=== PATIENT | male | born 1965 | race Asian ===

== ENCOUNTER 2016-03-22 06:59 | Outpatient (CLI) | payer OTHER | END 2016-03-22 07:00 | disposition home or self-care (01) | DX: E11.9 Type 2 diabetes mellitus without complications (principal); E78.5 Hyperlipidemia, unspecified; I10 Essential (primary) hypertension ==

== ENCOUNTER 2016-09-23 17:00 | Outpatient (CLI) | payer OTHER | END 2016-09-23 17:01 | disposition critical access hospital (66) | LOC: EMS 17:00 | PROVIDERS: ATTEND Surgery | DX: R42 Dizziness and giddiness (principal) | CPT/HCPCS: A0425; A0429 ==

== ENCOUNTER 2016-09-23 17:23 | Emergency (ER) | payer OTHER ==
--- NOTE | 2016-09-23 18:59 | ED Physician Documentation ---
PD HPI ABD PAIN - Stated complaint Stated Complaint: ABD PX - Chief complaint Chief Complaint: General - History obtained from History obtained from: Patient - History of Present Illness Timing - onset: How many hours ago Timing - duration: Hours (2) Timing - details: Abrupt onset, Still present Quality: Cramping, Aching, Pain Location: Epigastric Radiation: Chest Associated symptoms: Nausea, Other (diaphoretic, general weakness.) Similar symptoms before: Has not had sx before Recently seen: Not recently seen Review of Systems Constitutional: denies: Fever, Chills, Myalgias Nose: denies: Rhinorrhea / runny nose, Congestion Throat: denies: Sore throat Cardiac: reports: Chest pain / pressure. denies: Pedal edema, Calf pain Respiratory: reports: Dyspnea. denies: Cough, Wheezing GI: reports: Nausea. denies: Abdominal Pain, Vomiting, Diarrhea Skin: denies: Rash, Lesions Musculoskeletal: denies: Neck pain, Back pain Neurologic: reports: Generalized weakness. denies: Focal weakness, Numbness, Near syncope PD PAST MEDICAL HISTORY - Past Medical History Past Medical History: Yes Cardiovascular: None Respiratory: None Neuro: None Endocrine/Autoimmune: Type 2 diabetes GI: None : None HEENT: None Psych: None Musculoskeletal: None - Past Surgical History Past Surgical History: No - Present Medications Home Medications: Ambulatory Orders Medication Instructions Recorded Confirmed metFORMIN [Glucophage] 500 mg PO BIDWM 02/14/15 09/23/16 Ibuprofen [Motrin] 800 mg PO Q8H PRN #30 tablet 12/01/15 09/23/16 HYDROcod/ACETAM 5/325 [[place] 5/325] 1 tab PO Q6H PRN #15 tablet 09/23/16 Ondansetron Odt [Zofran] 4 mg TL Q6H PRN #15 tablet 09/23/16 - Allergies Allergies/Adverse Reactions: Allergies Allergy/AdvReac Type Severity Reaction Status Date / Time No Known Drug Allergies Allergy Verified 02/13/15 19:31 - Social History Does the pt smoke?: No Smoking Status: Current some day smoker Does the pt drink ETOH?: No Does the pt have substance abuse?: No - Immunizations Immunizations: TDAP >10years/unknown PD ED PE NORMAL - Vitals Vital signs reviewed: Yes - General General: Alert and oriented X 3, Well developed/nourished - HEENT HEENT: PERRL (nonicteric), Pharynx benign - Neck Neck: Supple, no meningeal sign, No adenopathy - Cardiac Cardiac: RRR, No murmur - Respiratory Respiratory: Clear bilaterally - Abdomen Abdomen: Normal bowel sounds, Soft, Non distended, No organomegaly, Other ( tender epigastric without percussion nor rebound. ) - Back Back: No CVA TTP - Derm Derm: Normal color, Warm and dry - Extremities Extremities: No deformity, No tenderness to palpate - Neuro Neuro: Alert and oriented X 3, No motor deficit, Normal speech - Psych Psych: Normal mood, Normal affect Results - Vitals Vitals: Oxygen O2 Source Room air - EKG (time done) admission Rhythm: NSR [place]: Normal Intervals: Normal SD QRS: Normal Ischemia: Normal ST segments. No: ST elevation c/w ischemia, ST depression - Labs Labs: Laboratory Tests 09/23/16 09/23/16 09/23/16 19:50 19:50 19:50 WBC 13.4 H RBC 5.16 Hgb 15.0 Hct 45.1 MCV 87.5 MCH 29.1 MCHC 33.2 RDW 12.9 Plt Count 333 MPV 7.8 Neut # 8.4 H Lymph # 4.0 H [place] # 0.7 Eos # 0.2 Baso # 0.1 Absolute Nucleated RBC 0.01 Nucleated RBCs 0.0 Sodium 134 L Potassium 4.1 Chloride 97 L Carbon Dioxide 25 Anion Gap 12.0 BUN 19 Creatinine 0.8 Estimated GFR (MDRD) 102 Glucose 186 H Calcium 10.4 H Total Bilirubin 0.6 AST 25 ALT 26 Alkaline Phosphatase 80 Troponin I < 0.04 Total Protein 8.2 Albumin 4.4 Globulin 3.8 Albumin/Globulin Ratio 1.2 Lipase 32 - Rads (name of study) abd U/S Radiology: Prelim report reviewed (sludge or stone in neck. No signs of cholecystitis. ) PD MEDICAL DECISION MAKING - ED course Complexity details: re-evaluated patient (he is improved with meds here. Labs and ECG are okay. U/S showing stone in neck without signs of inflammation. Consider biliary colic, given the abrupt severe pain and now doing better.), considered differential, d/w patient Departure - Departure Disposition: 01 Home, Self Care Clinical Impression: Upper abdominal pain, Biliary colic symptom Condition: Stable Record reviewed to determine appropriate education?: Yes Instructions: ED Epigastric Pain UKO, ED Gallstone W Biliary Colic Follow-Up: Bear Madsen MD [Provider Admit Priv/Credential] - Prescriptions: HYDROcod/ACETAM 5/325 [[place] 5/325] 1 tab PO Q6H PRN #15 tablet PRN Reason: Pain Ondansetron Odt [Zofran] 4 mg TL Q6H PRN #15 tablet PRN Reason: Nausea / Vomiting Comments: The tests here did not give a certain cause of your symptoms. However the ultrasound does show a gallstone in the neck of the gallbladder which combined with your symptoms would suggest he had a gallbladder spasm. Have a lower fat diet for the next few days. Tylenol or ibuprofen if needed for pains. He can use ondansetron if needed for nausea. Add hydrocodone if needed for worse pain. Rest for 1-2 days. Recheck if not fully improved and your symptoms over the next couple of days. Return sooner if you have increasing pain, vomiting, fevers or other symptoms. If you have recurring mild episodes like this, then consult surgery to discuss whether he would need gallbladder surgery. If no further episodes then no particular treatment needed. Forms: Activity restrictions Discharge Date/Time: 09/23/16 23:21
[2016-09-23] MEDS ORDERED: ASPIRIN CHEW 81 MG TABLET ONE (19:45)
[2016-09-23] MEDS ORDERED: MAG HYDROX/AL HYDROX/SIMETH 30 ML UDC ONE (19:45)
[2016-09-23] MEDS ORDERED: LIDOCAINE VISCOUS 2% 15 ML UDC MM ONE (19:45)
[2016-09-23] MEDS: ASPIRIN CHEW 81 MG TABLET PO STA (19:46)
[2016-09-23] MEDS: LIDOCAINE VISCOUS 2% 15 ML UDC MM STA (19:46)
[2016-09-23] MEDS: MAG HYDROX/AL HYDROX/SIMETH 30 ML UDC PO STA (19:46)
[2016-09-23 20:00] LABS: BASOPHILS # (AUTO) 0.1 10^3/uL (0.0-0.1); BASOPHILS % (AUTO) 0.7 %; EOSINOPHILS # (AUTO) 0.2 10^3/uL (0.0-0.7); EOSINOPHILS % (AUTO) 1.4 %; HCT - HEMATOCRIT 45.1 % (42.0-52.0); LYMPHOCYTES % (AUTO) 29.7 %; MEAN CORPUSCULAR HEMOGLOBIN 29.1 pg (27.0-31.0); MEAN CORPUSCULAR HGB CONC 33.2 g/dL (32.0-36.0); MEAN CORPUSCULAR VOLUME 87.5 fL (80.0-94.0); MEAN PLATELET VOLUME 7.8 fL (7.4-11.4); MONOCYTES # (AUTO) 0.7 10^3/uL (0.0-1.0); MONOCYTES % (AUTO) 5.5 %; NEUTROPHILS # (AUTO) 8.4 10^3/uL (1.5-6.6); NEUTROPHILS % (AUTO) 62.7 %; RED BLOOD COUNT 5.16 10^6/uL (4.70-6.10); RED CELL DISTRIBUTION WIDTH 12.9 % (12.0-15.0); UNCORRECTED WHITE BLOOD COUNT 13.4 x10^3/uL; WHITE BLOOD COUNT 13.4 x10^3/uL (4.8-10.8)
[2016-09-23 20:13] LABS: ALBUMIN/GLOBULIN RATIO 1.2 (1.0-2.2); BILIRUBIN,TOTAL 0.6 mg/dL (0.2-1.0); CALCIUM 10.4 mg/dL (8.5-10.3); CREATININE 0.8 mg/dL (0.6-1.2); POTASSIUM 4.1 mmol/L (3.5-5.0); TOTAL PROTEIN 8.2 g/dL (6.7-8.2)
[2016-09-23] MEDS: MECLIZINE 12.5 MG TABLET PO STA (21:17)
[2016-09-23] MEDS: SODIUM CHLORIDE 0.9% 1,000 ML IV ONE (21:17)
[2016-09-23] MEDS ORDERED: MECLIZINE 12.5 MG TABLET PO ONE (21:17)
--- NOTE | 2016-09-23 21:48 | Ultrasound Preliminary Report ---
Exam: US Abdomen Limited IMPRESSION: 1. No change. Sludge ball or gallstone in the neck of the gallbladder without other findings of acute cholecystitis. 2. Steatosis of the liver. 3. No biliary dilatation. [facility] SITE ID: [id number]
--- NOTE | 2016-09-23 21:50 | Ultrasound Report ---
EXAM: ABDOMEN ULTRASOUND LIMITED, RUQ EXAM DATE: 09/23/2016 09:30 PM. CLINICAL HISTORY: Upper abd pain onset today. COMPARISON: 02/13/2015. TECHNIQUE: Real-time scanning was performed with static images obtained. FINDINGS: Liver: The liver parenchyma is diffusely echogenic. No focal liver masses visualized. 16.3 cm. Main p ortal vein flow: Hepatopetal. Gallbladder: There is a non-shadowing echogenic density in the neck of the gallbladder measuring 9 x 7 mm. Negative ultrasound Briseno's sign. The gallbladder appears normal in size and thickness. Biliary System: CBD measures 6 mm. No intrahepatic or extrahepatic ductal dilatation. Other: Right kidney measures 12.5 x 5 x 5 cm. No hydronephrosis. IMPRESSION: 1. No change. Sludge ball or gallstone in the neck of the gallbladder without other findings of acute cholecystitis. 2. Steatosis of the liver. 3. No biliary dilatation. [facility] Referring Provider Line: [phone] SITE ID: [id number]
[2016-09-23 22:17] VITALS: BP 137/80
== END 2016-09-23 23:21 | disposition home or self-care (01) ==
LOC: EDUNIT# → ED 17:23
DX: K80.50 Calculus of bile duct without cholangitis or cholecystitis without obstruction (principal); R10.13 Epigastric pain; E11.9 Type 2 diabetes mellitus without complications; Z79.84 Long term (current) use of oral hypoglycemic drugs; F17.200 Nicotine dependence, unspecified, uncomplicated
CPT/HCPCS: 36415; 76705; 80053; 83690; 84484; 85025; 93005; 99284; A9270

== ENCOUNTER 2016-10-21 09:17 | Outpatient (CLI) | payer OTHER ==
--- NOTE | 2016-10-21 12:35 | Ultrasound Report ---
LIMITED ABDOMINAL ULTRASOUND: 10/21/2016 CLINICAL INDICATION: Possible gallstone on previous exam. COMPARISON: 09/23/2016 TECHNIQUE: Real-time scanning was performed with patient portal representative static images obtained. FINDINGS: The liver measures 17.4 cm. The liver demonstrates increased echotexture, compatible with fatty infiltration. No focal parenchymal lesion or intrahepatic biliary dilatation is seen. The co mmon bile duct measures 5 mm. The gallbladder demonstrates a small amount of sludge. No shadowing c alculus is identified. The right kidney measures 12.6 cm, and demonstrates no hydronephrosis. No fr ee fluid is present. IMPRESSION: SMALL AMOUNT OF SLUDGE WITHIN THE GALLBLADDER. NO CHOLELITHIASIS. FATTY INFILTRATION O F THE LIVER. JOB #: [id number] EXT JOB #:
== END 2016-10-21 09:18 | disposition home or self-care (01) ==
LOC: DI 09:17
PROVIDERS: ATTEND Surgery
DX: K82.8 Other specified diseases of gallbladder (principal); K76.0 Fatty (change of) liver, not elsewhere classified
CPT/HCPCS: 76705

== ENCOUNTER 2018-04-29 12:41 | Outpatient (CLI) | payer BC ==
--- NOTE | 2018-04-29 15:11 | CARDIAC PROCEDURE NOTE ---
DATE OF SERVICE: 04/29/2018 Physician: Vicky Wong MD, [facility] INDICATION: Chest pain. CARDIAC RISK FACTORS: Male gender, diabetes, hypertension, overweight, smoker who quit 1 month ago, hyperlipidemia. PROCEDURE: After signing informed consent, the patient underwent a Niraj- protocol treadmill stress test. No imaging was ordered with this test. RESTING HEART RATE: 71. PEAK HEART RATE: 145 (86% predicted maximum heart rate). RESTING BLOOD PRESSURE: 132/84. PEAK BLOOD PRESSURE: 160/70. The patient exercised for 4 minutes and 17 seconds on a Niraj protocol treadmill stress test. He achieved a peak HR of 145 (86% predicted maximum heart rate based on age), and 6.3 METS. There was normal heart rate and blood pressure response to exercise. At the end of the first stage, ST segment depressions began to develop. At 1 minute into stage 2, the patient developed his typical chest "heat" feeling which he rated a 4/10. The treadmill test was stopped at this time. The patient's chest symptom resolved after 2-1/2 minutes of recovery. RESTING ECG: Normal sinus rhythm and within normal limits. EKG AT PEAK: [address] depressions in leads II, III, aVF, and V5 and V6, and 3 mm horizontal depressions in V3 and V4. T waves also became flat in those leads at peak. In recovery, T waves became inverted. SUMMARY 1. Symptom-Limited treadmill stress test performed. The patient developed typical chest discomfort. 2. Ischemic changes by EKG criteria are present. 3. No imaging study was ordered with this treadmill stress test. RECOMMENDATIONS: 1. The patient was given the preliminary impression of an abnormal stress test. 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 He was told to only carry out light activities including no yard work, no walking up inclines, no pushing or "rushing" (which sometimes causes these symptoms, he said). 2. I called the office of Dr. Coughlin, who was gone today, and spoke to his nurse with the test result and recommendations. The patient was given an appointment to see the [facility] on the following day, this appointment was given to the patient. 3. He should be started on a daily aspirin, Nitrates and B-blockers, have light activity until he has a coronary angiogram and may need follow-up with Cardiology. Report FAXed on 04/29/18 to PCP office cc: Mihir Coughlin DO TD: 04/29/2018 14:33 MTDD
== END 2018-04-29 12:42 | disposition home or self-care (01) ==
LOC: DI 12:41
PROVIDERS: ATTEND Family Medicine
DX: R94.39 Abnormal result of other cardiovascular function study (principal); E11.9 Type 2 diabetes mellitus without complications; I10 Essential (primary) hypertension; E66.3 Overweight; Z87.891 Personal history of nicotine dependence; E78.5 Hyperlipidemia, unspecified
CPT/HCPCS: 93017

== ENCOUNTER 2021-05-09 12:22 | Emergency (ER) | payer OTHER, BC ==
--- NOTE | 2021-05-09 13:09 | ED Physician Documentation ---
History of Present Illness - Stated complaint Stated Complaint: RIGHT SHOULDER INJURY - Chief complaint Chief Complaint: Trauma Ext - Additonal information Additional information: 55-year-old male who is employed by [employer] presents the emergency department for evaluation of acute right shoulder pain. He reports that yesterday he was moving some boards and a board began to fall. He attempted to grab it and when he did so he felt a pop in the shoulder. He did not think much of it and continued to work through the day but today he has had increasing pain especially in the anterior shoulder. He is right-hand dominant. No history of previous injury. Review of Systems Constitutional: denies: Fever, Chills Throat: reports: Reviewed and negative Cardiac: reports: Reviewed and negative Respiratory: reports: Reviewed and negative GI: reports: Reviewed and negative Musculoskeletal: reports: Joint pain (right shoulder) PD PAST MEDICAL HISTORY - Past Medical History Past Medical History: Yes Cardiovascular: Hypertension, High cholesterol, Coronary artery disease Respiratory: None Neuro: None Endocrine/Autoimmune: Type 2 diabetes GI: None : None HEENT: None Psych: None Musculoskeletal: None - Past Surgical History Past Surgical History: No Cardiovascular: Cardiac catheterization, Other - Present Medications Home Medications: Ambulatory Orders Medication Instructions Recorded Confirmed metFORMIN [Glucophage] 1,000 mg PO BIDWM 02/14/15 05/09/21 Aspirin [Aspirin EC] 81 mg PO DAILY 05/09/21 05/09/21 Lisinopril [Zestril] 20 mg PO DAILY 05/09/21 05/09/21 Metoprolol Succinate 100 mg PO DAILY 05/09/21 05/09/21 Rosuvastatin Calcium [Crestor] 20 mg PO HS 05/09/21 05/09/21 - Allergies Allergies/Adverse Reactions: Allergies Allergy/AdvReac Type Severity Reaction Status Date / Time No Known Drug Allergies Allergy Verified 05/09/21 12:27 - Social History Does the pt smoke?: No Smoking Status: Never smoker Does the pt drink ETOH?: No Does the pt have substance abuse?: No - Immunizations Immunizations are current?: Yes Immunizations: TDAP >10years/unknown PD ED PE EXPANDED - General General: Alert, No acute distress - Extremities Extremities: Right shoulder (Mild tenderness with active and passive range of motion especially at the AC joint. Negative drop arm test full strength preserved with abduction and abduction against resistance. Normal strength at elbow and wrist. No paresthesias) Results - Vitals Vitals: Vital Signs - 24 hr 05/09/21 05/09/21 12:27 13:51 Temperature 36 C L Heart Rate 79 75 Respiratory 16 16 Rate Blood Pressure 143/94 H 138/94 H O2 Saturation 97 100 Oxygen O2 Source Room air - Rads (name of study) right shoulder xr Radiology: Final report received (Unremarkable right shoulder radiograph) PD MEDICAL DECISION MAKING - ED course Complexity details: reviewed results, re-evaluated patient, considered differential, d/w patient ED course: 55-year-old male presents emergency department with acute right anterior shoulder pain after attempting to stop a heavy board from falling yesterday while working. He does work for [employer]. He has some pain in the anterior shoulder with active and passive range of motion but negative signs for internal derangement. Negative drop arm. X-ray was unremarkable. At this time I suspect a sprain. He is placed in a shoulder sling advised ibuprofen. We will have him follow-up with PCP on Friday if pain improve may then be returned to work. 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 App[employer]ate labor and industries report completed for [employer] Departure - Departure Disposition: Home, Self Care Clinical Impression: Work related injury Sprain of right shoulder Qualifiers: Encounter type: initial encounter Shoulder sprain type: unspecified sprain Qualified Code(s): S43.401A - Unspecified sprain of right shoulder joint, initial encounter Condition: Stable Record reviewed to determine appropriate education?: Yes Instructions: ED Sprain Shoulder Follow-Up: Mihir Coughlin DO [Primary Care Provider] - Comments: Rai you are seen today in the emergency department for pain in the right shoulder after attempting to stop a board from falling while at work yesterday. The x-ray of your shoulder is normal and as we discussed at the bedside it appears that you have a simple shoulder sprain. Over the next few days I would like you to take ibuprofen 600 mg with food 2-3 times a day. Ice the shoulder. We are providing you with a sling to wear if you find that it is more comfortable. In general shoulder sprains will improve with conservative treatment and therapy. 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 Therefore it is important that you follow-up on 14 May or Friday to see your primary doctor or a walk-in clinic provider. If your pain and symptoms are improved they may be able to return you to work. Discharge Date/Time: 05/09/21 13:52
--- NOTE | 2021-05-09 13:30 | XRAY Report ---
PROCEDURE: Shoulder 3 View RT INDICATIONS: R shoulder pain/injury TECHNIQUE: 3 views of the shoulder were acquired. COMPARISON: None. FINDINGS: Bones: No fractures or dislocations. No suspicious bony lesions. Visualized ribs appear intact. Soft tissues: No suspicious soft tissue calcifications. IMPRESSION: Unremarkable right shoulder radiographs Reviewed by: Isidro Sotomayor MD on 05/09/2021 12:29 PM [facility] Approved by: Isidro Sotomayor MD on 05/09/2021 12:29 PM [facility] Station ID: [id number]
[2021-05-09 13:52] VITALS: BP 138/94
== END 2021-05-09 13:52 | disposition home or self-care (01) ==
LOC: ED 12:22
DX: S43.401A Unspecified sprain of right shoulder joint, initial encounter (principal); X58.XXXA Exposure to other specified factors, initial encounter; Y99.0 Civilian activity done for income or pay; I10 Essential (primary) hypertension; E11.9 Type 2 diabetes mellitus without complications; Z79.84 Long term (current) use of oral hypoglycemic drugs
CPT/HCPCS: 99282; 99283

== ENCOUNTER 2021-10-14 12:31 | Outpatient (CLI) | payer OTHER, BC | END 2021-10-14 12:32 | disposition home or self-care (01) | LOC: RT 12:31 | PROVIDERS: ATTEND Specialist | DX: Z01.810 Encounter for preprocedural cardiovascular examination (principal) | CPT/HCPCS: 93005 ==

== ENCOUNTER 2021-10-17 07:33 | Outpatient (CLI) | payer BC ==
[2021-10-17 08:05] LABS: CALCIUM 9.7 mg/dL (8.5-10.3)
[2021-10-17 13:19] LABS: ESTIMATED AVERAGE GLUCOSE 206 mg/dL (70-100); HEMOGLOBIN A1c% 8.8 % (4.27-6.07)
== END 2021-10-17 07:34 | disposition home or self-care (01) ==
LOC: LAB 07:33
PROVIDERS: ATTEND Specialist
DX: Z01.812 Encounter for preprocedural laboratory examination (principal)
CPT/HCPCS: 36415; 80048; 83036

== ENCOUNTER 2021-11-28 10:24 | Outpatient (CLI) | payer BC ==
[2021-11-28 12:39] LABS: ESTIMATED AVERAGE GLUCOSE 183 mg/dL (70-100)
== END 2021-11-28 10:25 | disposition home or self-care (01) ==
LOC: LAB 10:24
PROVIDERS: ATTEND Specialist
DX: Z01.818 Encounter for other preprocedural examination (principal)
CPT/HCPCS: 36415; 83036

== ENCOUNTER 2022-04-18 12:44 | Outpatient (CLI) | payer OTHER, BC ==
[2022-04-18 13:14] LABS: ALBUMIN 4.4 g/dL (3.2-5.5); ALBUMIN/GLOBULIN RATIO 1.2 (1.0-2.2); BILIRUBIN,TOTAL 0.7 mg/dL (0.2-1.0); CALCIUM 9.6 mg/dL (8.5-10.3); CREATININE 0.9 mg/dL (0.6-1.2); POTASSIUM 4.3 mmol/L (3.5-5.0); TOTAL PROTEIN 8.1 g/dL (6.7-8.2)
[2022-04-18 14:58] LABS: ESTIMATED AVERAGE GLUCOSE 260 mg/dL (70-100); HEMOGLOBIN A1c% 10.7 % (4.27-6.07)
== END 2022-04-18 12:45 | disposition home or self-care (01) ==
LOC: RT 12:44
PROVIDERS: ATTEND Specialist
DX: Z01.818 Encounter for other preprocedural examination (principal); R73.09 Other abnormal glucose
CPT/HCPCS: 36415; 80053; 83036; 93005

== ENCOUNTER 2023-04-25 09:06 | Outpatient (CLI) | payer BC ==
[2023-04-25 09:24] LABS: BASOPHILS # (AUTO) 0.1 10^3/uL (0.0-0.1); BASOPHILS % (AUTO) 0.7 %; EOSINOPHILS # (AUTO) 0.4 10^3/uL (0.0-0.7); EOSINOPHILS % (AUTO) 3.2 %; HCT - HEMATOCRIT 42.9 % (42.0-52.0); HGB - HEMOGLOBIN 14.4 g/dL (14.0-18.0); LYMPHOCYTES # (AUTO) 4.3 10^3/uL (1.5-3.5); LYMPHOCYTES % (AUTO) 37.8 %; MEAN CORPUSCULAR HEMOGLOBIN 29.3 pg (27.0-31.0); MEAN CORPUSCULAR HGB CONC 33.6 g/dL (32.0-36.0); MEAN CORPUSCULAR VOLUME 87.2 fL (80.0-94.0); MEAN PLATELET VOLUME 9.2 fL (7.4-11.4); MONOCYTES # (AUTO) 0.8 10^3/uL (0.0-1.0); MONOCYTES % (AUTO) 7.2 %; NEUTROPHILS # (AUTO) 5.7 10^3/uL (1.5-6.6); NEUTROPHILS % (AUTO) 50.7 %; PLT - PLATELET COUNT 262 10^3/uL (130-450); RED BLOOD COUNT 4.92 10^6/uL (4.70-6.10); RED CELL DISTRIBUTION WIDTH 13.1 % (12.0-15.0); WHITE BLOOD COUNT 11.3 x10^3/uL (4.8-10.8)
[2023-04-25 09:39] LABS: CREATININE,URINE 163.4 mg/dL; MICROALBUM/CREATININE RATIO,UR 17.7 ug/mg (<30.0); MICROALBUMIN,URINE 2.9 mg/dL
[2023-04-25 09:46] LABS: ALBUMIN 4.5 g/dL (3.2-5.5); ALBUMIN/GLOBULIN RATIO 1.7 (1.0-2.2); ALKALINE PHOSPHATASE 55 IU/L (42-121); ALT ALANINE AMINOTRANSFERASE 15 IU/L (10-60); AST ASPARTATE AMINOTRANSFERASE 14 IU/L (10-42); BILIRUBIN,TOTAL 0.9 mg/dL (0.2-1.0); BUN - BLOOD UREA NITROGEN 17 mg/dL (6-20); CALCIUM 9.6 mg/dL (8.5-10.3); CARBON DIOXIDE - CO2 28 mmol/L (21-32); CHLORIDE 101 mmol/L (101-111); CHOLESTEROL 110 mg/dL; GFR - MDRD 77 (>89); GLUCOSE 157 mg/dL (74-104); HDL CHOLESTEROL 37 mg/dL; LDL CHOLESTEROL,CALCULATED 19 mg/dL; LDL/HDL RATIO 0.5 (<3.6); SODIUM 139 mmol/L (135-145); TOTAL PROTEIN 7.2 g/dL (6.4-8.9); TRIGLYCERIDES 268 mg/dL (48-352); URIC ACID 7.3 mg/dL (4.4-7.6); VLDL CHOLESTEROL 54 mg/dL
[2023-04-25 09:55] LABS: THYROID STIMULATING HORMONE 3.27 uIU/mL (0.34-5.60)
[2023-04-25 15:00] LABS: ESTIMATED AVERAGE GLUCOSE 249 mg/dL (70-100); HEMOGLOBIN A1c% 10.3 % (4.27-6.07)
== END 2023-04-25 09:07 | disposition home or self-care (01) ==
LOC: LAB 09:06
PROVIDERS: ATTEND Family Medicine
DX: I10 Essential (primary) hypertension (principal); E11.65 Type 2 diabetes mellitus with hyperglycemia; I25.10 Atherosclerotic heart disease of native coronary artery without angina pectoris; E78.5 Hyperlipidemia, unspecified; Z12.5 Encounter for screening for malignant neoplasm of prostate; M10.9 Gout, unspecified
CPT/HCPCS: 36415; 80053; 80061; 82043; 82570; 83036; 83721; 84153; 84443; 84550; 85025